=== PATIENT | male | born 1970 | race Caucasian/White ===

== ENCOUNTER 2017-11-05 20:47 | Emergency (ER) | payer BC ==
[2017-11-05] MEDS ORDERED: Metoclopramide IV* 5 MG/ML 2 ML VIAL IV SLOW PU ONE (21:39)
[2017-11-05] MEDS ORDERED: NS 0.9% 1000 ML* 1,000 ML IV ONE (21:39)
[2017-11-05] MEDS ORDERED: Pantoprazole IV* 40 MG IV ONE (21:40)
--- NOTE | 2017-11-05 21:46 | ED ---
Abdominal Pain/Male - HPI Summary HPI Summary: This is bess Arciniega documenting for attending physician Nba Louis M.D. Pt is a 47 y/o male who presents to [facility] c/o abdominal pain since 19:30 today. He states after eating chicken salad from takeout, he felt as if he ate 20 raw onions. The pain is described as 5/10 in severity, and is a burning pain band around his chest that radiates to his back. Pt was doubled over in pain. The greatest area of pain is epigastric. Pt denies any N/V/D, urinary symptoms, or fever. He denies any PMHx of surgery or GERD. - History of Current Complaint Chief Complaint: EDAbdPain Stated Complaint: CHEST PAIN Time Seen by Provider: 11/05/17 21:15 Hx Obtained From: Patient Onset/Duration: Sudden Onset, Lasting Hours - 19:30, Still Present Timing: Constant Severity Currently: Moderate Pain Intensity: 5 Pain Scale Used: 0-10 Numeric Location: Diffuse - "Band around chest, Epigastric - Worst Radiates: Yes Radiates to: Back Character: Burning Aggravating Factor(s): Food - Chicken salad with onions Alleviating Factor(s): Nothing Associated Signs And Symptoms: Negative: Fever, Urinary Symptoms, Nausea, Vomiting, Diarrhea - Allergies/Home Medications Allergies/Adverse Reactions: Allergies Allergy/AdvReac Type Severity Reaction Status Date / Time No Known Allergies Allergy Verified 11/05/17 20:55 Home Medications: Home Medications Sertraline* [Zoloft*] 100 mg PO BEDTIME 11/05/17 [History Confirmed 11/05/17] PMH/Surg Hx/FS Hx/Imm Hx Musculoskeletal History: Reports: Hx Back Problems - Low back pain Neurological History: Reports: Hx Migraine, Other Neuro Impairments/Disorders - Restless leg syndrome - Surgical History Surgery Procedure, Year, and Place: hernia repair at age 9 Infectious Disease History: No Infectious Disease History: Denies: Traveled Outside the [place] in Last 30 Days - Family History Known Family History: Negative: Diabetes - Social History Lives: With Family Alcohol Use: Occasionally Substance Use Type: Reports: None Smoking Status (MU): Never Smoked Tobacco Review of Systems Negative: Fever Positive: Abdominal Pain - Epigastic, "band around chest". Negative: Vomiting, Diarrhea, Nausea Genitourinary: Negative All Other Systems Reviewed And Are Negative: Yes Physical Exam - Summary Physical Exam Summary: VITAL SIGNS: Reviewed. GENERAL: Patient is a well-developed and nourished MALE who is lying comfortable in the stretcher. Patient is not in any acute respiratory distress. HEAD AND FACE: No signs of trauma. No ecchymosis, hematomas or skull depressions. No sinus tenderness. EYES: PERRLA, EOMI x 2, No injected conjunctiva, no nystagmus. EARS: Hearing grossly intact. Ear canals and tympanic membranes are within normal limits. MOUTH: Oropharynx within normal limits. NECK: Supple, trachea is midline, no adenopathy, no JVD, no carotid bruit, no c- spine tenderness, neck with full ROM. CHEST: Symmetric, no tenderness at palpation LUNGS: Clear to auscultation bilaterally. No wheezing or crackles. CVS: Regular rate and rhythm, S1 and S2 present, no murmurs or gallops appreciated. ABDOMEN: Soft. No signs of distention. No rebound no guarding, and no masses palpated. Bowel sounds are normal. Mild RUQ and epigastric tenderness. EXTREMITIES: FROM in all major joints, no edema, no cyanosis or clubbing. NEURO: Alert and oriented x 3. No acute neurological deficits. Speech is normal and follows commands. SKIN: Dry and warm Triage Information Reviewed: Yes Vital Signs On Initial Exam: Initial Vitals Temp Pulse Resp BP Pulse Ox 97.8 F 96 20 134/85 98 11/05/17 20:52 11/05/17 20:52 11/05/17 20:52 11/05/17 20:52 11/05/17 20:52 Vital Signs Reviewed: Yes Diagnostics - Vital Signs Vital Signs Temp Pulse Resp BP Pulse Ox 11/05/17 20:52 97.8 F 96 20 134/85 98 - Laboratory Result Diagrams: 11/05/17 22:04 11/05/17 21:57 Lab Statement: Any lab studies that have been ordered have been reviewed, and results considered in the medical decision making process. - Ultrasound No standard instances Ultrasound Interpretation: No Acute Changes - Abd US: Unremarkable US of the abdomen. ED physician reviewed radiology report. Ultrasound Interpretation Completed By: Radiologist - EKG 20:54 Cardiac Rate: NL - 69 bpm EKG Rhythm: Sinus Rhythm EKG Interpretation: Normal axis. Normal interval. No ischemic changes. Re-Evaluation - Re-Evaluation First Eval Re-Evaluation Time: 12:35 Change: Improved Comment: Pt is feeling better. Abdominal Pain Fem Course/Dx - Course Course Of Treatment: Pt is a 47 y/o male who presents to [facility] c/o abdominal pain since 19:30 today, after eating chicken salad. The pain is described as 5/ 10 in severity, and is a burning pain band around his chest that radiates to his back. The greatest area of pain is epigastric. Pt denies any N/V/D, urinary symptoms, or fever. A physical exam revealed Mild RUQ and epigastric tenderness. An abdominal US was negative. An EKG revealed normal rate of 69 bpm , Normal axis. Normal interval. No ischemic changes. A re-eval at 12:35 showed the pt feeling better. Final dx are GERD and gastritis. Pt will be discharged with prescriptions for Pantoprazole. Pt is agreeable with this plan. - Diagnoses Provider Diagnoses: GERD (gastroesophageal reflux disease), Gastritis Discharge - Sign-Out/Discharge Documenting (check all that apply): Patient Departure - Discharge - Discharge Plan Condition: Stable Disposition: HOME Prescriptions: Pantoprazole TAB (NF) [Protonix TAB (NF)] 40 mg PO DAILY #30 tab Patient Education Materials: Gastritis (ED), Gastroesophageal Reflux Disease ( ED) Referrals: Mendel Ford MD [Primary Care Provider] - (1-2 days) Additional Instructions: RETURN TO THE EMERGENCY DEPARTMENT FOR CHANGING OR WORSENING SYMPTOMS
[2017-11-05 22:09] LABS: ABS Basophils 0 10^3/ul (0-0.2); ABS Eosinophils 0 10^3/ul (0-0.6); ABS Lymphocytes 1.9 10^3/ul (1.0-4.8); ABS Monocytes 0.4 10^3/ul (0-0.8); ABS Neutrophils 5.3 10^3/ul (1.5-7.7); ABS Nucleated RBC 0 10^3/ul; Eosinophil % 0.6 % (0-6); Hematocrit 41 % (42-52); Hemoglobin 14.1 g/dl (14.0-18.0); Lymphocyte % 24.8 % (25-47); Mean Corpuscular HGB Conc 34 g/dl (31-36); Mean Corpuscular Hemoglobin 30 pg (27-31); Mean Corpuscular Volume 88 fL (80-94); Mean Platelet Volume 7.9 um3 (7.4-10.4); Nucleated Red Blood Cells % 0.1; Platelet Count 201 10^3/ul (150-450); Red Blood Count 4.67 10^6/ul (4.00-5.40); Red Cell Distribution Width 13 % (10.5-15); White Blood Count 7.8 10^3/ul (3.5-10.8)
[2017-11-05 22:26] LABS: EGFR Non-African American 74.4 (>60)
[2017-11-05 22:57] LABS: Urine Appearance Clear; Urine Blood Negative (Negative); Urine Color Yellow; Urine Ketones Negative (Negative); Urine Protein Negative (Negative); Urine Specific Gravity 1.014 (1.010-1.030); Urine Urobilinogen Negative (Negative)
[2017-11-06 00:48] VITALS: BP 112/79
--- NOTE | 2017-11-06 08:10 | RAD ---
INDICATION: Abdominal pain COMPARISON: None TECHNIQUE: Longitudinal and transverse scans of the abdomen were obtained. Doppler interrogation of the hepatic and portal venous system was performed. FINDINGS: Liver: The liver is normal in size and echogenicity. There are no focal masses. The liver measures 15.8 cm in cephalocaudal dimension. Vessels: There is normal hepatic and portal venous flow. Bile ducts: There is no evidence of intrahepatic or extrahepatic ductal dilatation. The common duct measures 0.4 cm. Gallbladder: The sonographic appearance of the gallbladder is normal. There is no evidence of cholelithiasis, thickening of the gallbladder wall, or pericholecystic fluid. Pancreas: The visualized portions of the pancreas are normal Spleen:The spleen is normal in size and echogenicity. The spleen measures 9.5 x 4.2 x 3.9 cm. Kidneys: The kidneys are normal in size and echogenicity. There are no masses or calculi. There is no evidence of hydronephrosis. The right kidney measures 11.0 x 3.8 x 5.5 cm and the left kidney measures 10.2 x 5.8 x 5.8 cm. IVC and aorta: The aorta and superior vena cava appear normal. Fluid: There is no ascites. Other: None. IMPRESSION: NEGATIVE EXAMINATION.
== END 2017-11-06 00:47 | disposition home or self-care (01) ==
LOC: ED 20:47
DX: K21.9 Gastro-esophageal reflux disease without esophagitis (principal); K29.70 Gastritis, unspecified, without bleeding
CPT/HCPCS: 36415; 76700; 80053; 81003; 82140; 83605; 83690; 83735; 85025; 86140; 93005; 99282